=== PATIENT | male | born 1990 | race Caucasian/White ===

== ENCOUNTER 2023-06-27 11:46 | Emergency (ER) | payer OTHER, SELFPAY ==
[2023-06-27 11:52] VITALS: BP 138/89; PULSE 89; RESP 16; TEMP 36.8; O2SAT 96; BMI 25.7
--- NOTE | 2023-06-27 12:04 | ED.GENADUL1 ---
HPI - General Adult General Chief complaint: Skin/Abscess/Foreign Body Stated complaint: LUMPS AND BUMPS Time Seen by Provider: 06/27/23 11:55 Source: patient Mode of arrival: walk-in History of Present Illness HPI narrative: 32-year-old male presents for a lump on his tailbone. It's been there for about five days and it's getting bigger. It hurts to touch it. No drainage and he's never had anything like this before. The pain is continuous and moderate. Related Data Previous Rx's Medication Instructions Recorded acetaminophen 300 mg-codeine 30 mg 1 tab PO Q6H PRN pain 5 days #20 06/27/23 tablet tabs cephalexin 500 mg capsule 500 mg PO QID 10 days #40 caps 06/27/23 sulfamethoxazole 800 1 tab PO BID 10 days #20 tabs 06/27/23 mg-trimethoprim 160 mg tablet (Bactrim DS) Allergies Allergy/AdvReac Type Severity Reaction Status Date / Time No Known Drug Allergies Allergy Verified 06/27/23 11:55 Review of Systems ROS Narrative A ten point review of systems is negative except as noted above. Exam Narrative Exam Narrative: Nurses note and vital signs reviewed and patient is not hypoxic. General: The patient appears well and in no apparent distress. Patient is resting comfortably on cart. Skin: Warm, dry, no pallor noted. There is no rash noted. Head: Normocephalic, atraumatic Eye: Normal conjunctiva, no drainage Ears, Nose, Mouth, and Throat: oral mucosa is moist. Nares patent. Cardiovascular: Regular Rate and Rhythm Respiratory: Patient is in no distress, no accessory muscle use, lungs are clear to auscultation, no wheezing, rales or rhonchi Back: he has a slightly raised slightly fluctuant area near his coccyx. There is no open areas or drainage. it is tender GI: nontender Musculoskeletal: The patient has no evidence of calf tenderness, no pitting edema, symmetrical pulses noted bilaterally Neurological: A&O Psychiatric: Cooperative Constitutional Vital Signs, click to edit/add: Last Vital Signs Temp 98.3 F 06/27/23 11:52 Pulse 89 06/27/23 11:52 Resp 16 06/27/23 11:52 BP 138/89 06/27/23 11:52 Pulse Ox 96 06/27/23 11:52 O2 Del Method Room Air 06/27/23 11:52 Course Vital Signs Vital signs: Vital Signs Temperature 98.3 F 06/27/23 11:52 Pulse Rate 89 06/27/23 11:52 Respiratory Rate 16 06/27/23 11:52 Blood Pressure 138/89 06/27/23 11:52 Pulse Oximetry 96 06/27/23 11:52 Oxygen Delivery Method Room Air 06/27/23 11:52 Temperature 98.3 F 06/27/23 11:52 Pulse Rate 89 06/27/23 11:52 Respiratory Rate 16 06/27/23 11:52 Blood Pressure 138/89 06/27/23 11:52 Pulse Oximetry 96 06/27/23 11:52 Oxygen Delivery Method Room Air 06/27/23 11:52 Medical Decision Making MDM Narrative Medical decision making narrative: he's prescribed Bactrim and Keflex and Tylenol 3. Treatment diagnosis and follow-up were discussed with the patient. Differential Diagnosis Differential Diagnosis: pilonidal cyst, pilonidal abscess, cellulitis Discharge Plan Discharge Chief Complaint: Skin/Abscess/Foreign Body Clinical Impression: Pilonidal abscess Patient Disposition: Home, Self-Care Time of Disposition Decision: 12:22 Condition: Good Mode of Transportation: Private Vehicle Prescriptions / Home Meds: New acetaminophen-codeine 300-30 mg tablet 1 tab PO Q6H PRN (Reason: pain) 5 Days Qty: 20 0RF sulfamethoxazole-trimethoprim [Bactrim DS] 800-160 mg tablet 1 tab PO BID 10 Days Qty: 20 0RF cephalexin 500 mg capsule 500 mg PO QID 10 Days Qty: 40 0RF Instructions: Pilonidal Cyst (ED) Stand Alone Forms: Portal Instructions Referrals: Physician,Non-Staff, MD [Primary Care Provider] - 1 week Procedures ED Procedure Instructions Procedures Procedures: The following procedure was performed by me. The pilonidal abscess was identified and local infiltration with one percent lidocaine without epinephrine utilized for complete skin anesthesia. The area was prepped with Betadine ?3 and draped sterilely and the abscess was then incised with a #11 blade and moderate amount of purulent material was extracted. Packing was not necessary due to the relatively small size. Dressing applied.
[2023-06-27] MEDS: LIDOCAINE HCL 1% 100 MG/10 ML MDV INJ (12:27)
== END 2023-06-27 12:35 | disposition home or self-care (01) ==
PROVIDERS: Emergency Provider Emergency Medicine
DX: L05.01 Pilonidal cyst with abscess (principal)
CPT/HCPCS: 10080; 99284